=== PATIENT | male | born 1950 | race Two or more races ===

== ENCOUNTER 2017-04-25 00:13 | Emergency (ER) | payer OTHER ==
[2017-04-25 01:46] VITALS: BP 116/72
[2017-04-25] MEDS ORDERED: Atorvastatin* 10 MG TAB PO ONE (03:31)
--- NOTE | 2017-04-25 06:55 | ED ---
Karolina Gerardo Rebecca, scribed for Lloyd Dawson MD on 04/25/17 at 0325 . Complex/Multi-Sys Presentation - HPI Summary HPI Summary: Pt is a 67 y/o M who presents to ED c/o the floor vibrating below his feet. Approximately 3-4 hours ago, his sx began upon arriving home from an round trip 8 hour car ride. Sx are currently resolved. Pt felt the vibrating in the bilateral feet and LE. Sx aggravated by standing, alleviated by spontaneous resolution. Additionally c/o feeling bilateral LE weakness and L lumbar back pain. Denies tremors, numbness, calf pain and difficulty walking. Symptoms were discrete to the feet. Notes that he has been unable to take his Lipitor due to running out of the medication. - History Of Current Complaint Chief Complaint: EDGeneral Time Seen by Provider: 04/25/17 03:12 Hx Obtained From: Patient Onset/Duration: Lasting Hours - 3-4 hours, Resolved Severity Currently: None Location: Negative Aggravating Factor(s): Standing Alleviating Factor(s): Spontaneous resolution Associated Signs And Symptoms: Positive: Back Pain - L lumbar back pain - Allergies/Home Medications Allergies/Adverse Reactions: Allergies Allergy/AdvReac Type Severity Reaction Status Date / Time No Known Allergies Allergy Verified 06/30/16 09:44 PMH/Surg Hx/FS Hx/Imm Hx Endocrine/Hematology History: Reports: Hx Diabetes - CONTROL WITH MEDS Denies: Hx Thyroid Disease Cardiovascular History: Reports: Other Cardiovascular Problems/Disorders - CHOLESTEROL CONTROL WITH MEDS Denies: Hx Hypertension, Hx Pacemaker/ICD Respiratory History: Denies: Hx Asthma, Hx Chronic Obstructive Pulmonary Disease (COPD) GI History: Reports: Hx Gastroesophageal Reflux Disease - ACID REFLUX CONTROL WITH MEDS, Hx Ulcer Sensory History: Reports: Hx Cataracts - BILATERAL, Hx Contacts or Glasses - READING GLASSES Denies: Hx Hearing Aid Opthamlomology History: Reports: Hx Cataracts - BILATERAL, Hx Contacts or Glasses - READING GLASSES Psychiatric History: Denies: Hx Panic Disorder - Cancer History Hx Chemotherapy: Yes - Surgical History Surgery Procedure, Year, and Place: 2006 CHOLECYSTECTOMY, LEONARD Hx Anesthesia Reactions: No Infectious Disease History: No Infectious Disease History: Denies: Hx Hepatitis, Hx Human Immunodeficiency Virus (HIV), Traveled Outside the [place] in Last 30 Days - Family History Known Family History: Positive: Other - Cataract - Social History Alcohol Use: None Substance Use Type: Reports: None Smoking Status (MU): Never Smoked Tobacco Review of Systems Positive: Arthralgia - L lumbar back pain, Other - Floor vibrations - resolved; NEGATIVE: calf pain and difficulty walking Neurological: Other - NEGATIVE: tremors Positive: Weakness - Bilateral LE weakness. Negative: Numbness All Other Systems Reviewed And Are Negative: Yes Physical Exam - Summary Physical Exam Summary: The patient is well-nourished in no acute distress and in no acute pain. The skin is warm and dry and skin color reflects adequate perfusion. HEENT: The head is normocephalic and atraumatic. The pupils are equal and reactive. The conjunctivae are clear and without drainage. Nares are patent and without drainage. Mouth reveals moist mucous membranes and the throat is without erythema and exudate. The external ears are intact. The ear canals are patent and without drainage. The tympanic membranes are intact. Respiratory: Chest is non-tender. Lungs are clear to auscultation and breath sounds are symmetrical and equal. Cardiovascular: Hear is regular rate and rhythm. There is no murmur or rub auscultated. There is no peripheral edema and pulses are symmetrical and equal. Musculoskeletal: There is no back pain noted. Extremities are non-tender with full range of motion. There is good capillary refill. There is no peripheral edema or calf tenderness elicited. No motor weakness. Neurological: Patient is alert and oriented to person, place and time. The patient has symmetrical motor strength in all four extremities. No motor weakness of the lower extremities. Deep tendon reflexes are symmetrical and equal in all four extremities. No sensory deficits. No motor weakness. Psychiatric: The patient has an appropriate affect and does not exhibit any anxiety or depression. Triage Information Reviewed: Yes Vital Signs On Initial Exam: Initial Vitals Temp Pulse Resp BP Pulse Ox 97.4 F 68 18 126/69 100 04/25/17 00:13 04/25/17 00:13 04/25/17 00:13 04/25/17 00:13 04/25/17 00:13 Vital Signs Reviewed: Yes - Rich Coma Scale Coma Scale Total: 15 Diagnostics - Vital Signs Vital Signs Temp Pulse Resp BP Pulse Ox 04/25/17 01:42 97.6 F 58 18 116/72 99 04/25/17 00:13 97.4 F 68 18 126/69 100 - Laboratory Lab Statement: Any lab studies that have been ordered have been reviewed, and results considered in the medical decision making process. Complex Multi-Symp Course/Dx Assessment/Plan: Pt is a 67 y/o M who presents to ED c/o the floor vibrating below his feet. Approximately 3-4 hours ago, his sx began upon arriving home from an round trip 8 hour car ride. Sx are currently resolved. Pt felt the vibrating in the bilateral feet and LE. Sx aggravated by standing, alleviated by spontaneous resolution. Additionally c/o feeling bilateral LE weakness and L lumbar back pain. Denies tremors, numbness, calf pain and difficulty walking. Symptoms were discrete to the feet. Notes that he has been unable to take his Lipitor due to running out of the medication. In the ED course, pt was administered PO Lipitor. Pt will be D/C to home with Dx of prescription refill and an Rx for Lipitor. He understands and agrees. - Diagnoses Provider Diagnoses: Prescription refill Discharge - Discharge Plan Condition: Stable Disposition: HOME Prescriptions: Atorvastatin* [Lipitor*] 10 mg PO BEDTIME #30 tab Patient Education Materials: Atorvastatin (By mouth) Referrals: Vianey Obando MD [Medical Doctor] - 3 Days The documentation as recorded by the Karolina decker Rebecca accurately reflects the service I personally performed and the decisions made by me, Lloyd Dawson MD.
== END 2017-04-25 03:45 | disposition home or self-care (01) ==
LOC: ED 00:13
DX: Z76.0 Encounter for issue of repeat prescription (principal); M54.9 Dorsalgia, unspecified; M54.5 Low back pain; R53.1 Weakness
CPT/HCPCS: 99282; A9270-GY